=== PATIENT | male | born 1970 | race Caucasian/White ===

== ENCOUNTER 2017-09-27 11:54 | Emergency (ER) | payer OTHER ==
[~2017-09-27] VITALS: Ht 170.2 cm; Wt 63.5 kg
[~2017-09-27 11:54] MED LIST: CEPHALEXIN 500500 M3 PO; CIPROFLOXIN HC2.5 M1 OPHTHALMIC; IBUPROFEN 600600 M1 PO; MULTIVITAMIN PO; TRIAMCINOLONE A80 G2 TOP
[2017-09-27] MEDS ORDERED: NORCO 5-325 TA1 EACH PO (13:33)
[2017-09-27] MEDS ORDERED: IBUPROFEN 800800 M1 PO (13:33)
[2017-09-27 13:43] VITALS: BP 130/74
== END 2017-09-27 13:44 | disposition home or self-care (01) ==
LOC: M.ERS 11:54
DX: M25.511 Pain in right shoulder (principal)

== ENCOUNTER 2018-08-25 15:50 | Emergency (ER) | payer MEDICAID ==
[~2018-08-25] VITALS: Ht 180.3 cm; Wt 61.2 kg
[~2018-08-25 15:50] MED LIST changes: +IBUPROFEN 800800 M1 PO; +NORCO 5-325 TA1 EACH PO
[2018-08-25] MEDS ORDERED: ACETAMINOPHEN-1 EAC1 PO (16:39)
[2018-08-25] MEDS ORDERED: MEDROLDOSEPACK PO (16:39)
[2018-08-25] MEDS ORDERED: IBUPROFEN 600600 M1 PO (16:39)
[2018-08-25 16:55] VITALS: BP 114/97
== END 2018-08-25 16:55 | disposition home or self-care (01) ==
LOC: M.ERS 15:50
DX: M25.531 Pain in right wrist (principal); M25.532 Pain in left wrist

== ENCOUNTER 2019-05-16 13:44 | Emergency (ER) | payer OTHER ==
[~2019-05-16] VITALS: Ht 170.2 cm; Wt 63.5 kg
[~2019-05-16 13:44] MED LIST changes: +ACETAMINOPHEN-1 EAC1 PO; +MEDROLDOSEPACK PO
[2019-05-16] MEDS ORDERED: PENICILLIN V P500 MG PO (15:34)
[2019-05-16] MEDS ORDERED: NAPROSYN500 MG PO (15:34)
[2019-05-16] MEDS ORDERED: TYLENOL WITH CO1 TA1 PO (15:34)
[2019-05-16 15:51] VITALS: BP 130/92
== END 2019-05-16 15:52 | disposition home or self-care (01) ==
LOC: M.ERS 13:44
DX: K04.7 Periapical abscess without sinus (principal); Z88.8 Allergy status to other drugs, medicaments and biological substances

== ENCOUNTER 2020-11-17 16:08 | Emergency (ER) | payer OTHER ==
[~2020-11-17] VITALS: Ht 170.2 cm; Wt 68.0 kg
[~2020-11-17 16:08] MED LIST changes: +NAPROSYN500 MG PO; +PENICILLIN V P500 MG PO; +TYLENOL WITH CO1 TA1 PO
[2020-11-17 17:11] VITALS: BP 118/68
== END 2020-11-17 17:12 | disposition home or self-care (01) ==
LOC: M.ERS 16:08
DX: S93.491A Sprain of other ligament of right ankle, initial encounter (principal); F12.90 Cannabis use, unspecified, uncomplicated; Z88.5 Allergy status to narcotic agent; X50.1XXA Overexertion from prolonged static or awkward postures, initial encounter; Y93.89 Activity, other specified; Y92.89 Other specified places as the place of occurrence of the external cause; Y99.9 Unspecified external cause status